=== PATIENT | male | born 1990 | race Caucasian/White ===

== ENCOUNTER 2018-07-31 13:30 | Emergency (ER) | payer MEDICAID ==
[~2018-07-31] VITALS: Ht 180.3 cm; Wt 184.2 kg
[2018-07-31 15:44] VITALS: BP 141/111
== END 2018-07-31 15:44 | disposition home or self-care (01) ==
LOC: ED 13:30
DX: L03.115 Cellulitis of right lower limb (principal); E66.01 Morbid (severe) obesity due to excess calories; E11.65 Type 2 diabetes mellitus with hyperglycemia
CPT/HCPCS: 82962

== ENCOUNTER 2019-09-25 13:41 | Emergency (ER) | payer MEDICAID ==
[~2019-09-25] VITALS: Ht 180.3 cm; Wt 183.3 kg
[2019-09-25 14:06] VITALS: Ht 180.3 cm; Wt 183.3 kg
[2019-09-25 15:33] VITALS: BP 136/88
== END 2019-09-25 15:33 | disposition home or self-care (01) ==
LOC: ED 13:41
DX: L03.115 Cellulitis of right lower limb (principal)
CPT/HCPCS: J7512